=== PATIENT | female | born 1950 | race Caucasian/White ===

== ENCOUNTER → 2022-01-26 | Outpatient (CLI) | payer MEDICARE, OTHER ==
[~2022-01-26] MED LIST: ACET650T61 PO; PANT40TA29 PO; PRAV40TA2 PO; SERT-141 PO
[2022-01-26 11:52] VITALS: BP 148/84
== END ==
LOC: M WHCPRO 10:01
PROVIDERS: ATTEND Surgery
DX: R92.0 Mammographic microcalcification found on diagnostic imaging of breast (principal)